=== PATIENT | female | born 1960 | race Hispanic/Latino ===

== ENCOUNTER 2017-12-06 16:07 | Emergency (ER) | payer SELFPAY ==
--- NOTE | 2017-12-06 17:06 | Emergency Department Report ---
ED General Adult HPI - General Chief complaint: Anxiety Stated complaint: AMS Time Seen by Provider: 12/06/17 16:25 Source: patient, EMS Mode of arrival: Stretcher Limitations: No Limitations - History of Present Illness Initial comments: Ms. Webber is a 57 yo female with history of anxiety, PTSD, fibromyalgia, lupus , osteoarthritis, rheumatoid arthritis and dyslipidemia who presents with possible panic attack. She states that she just did not know where she was. 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 She was walking to the hotel when she suddenly couldn't remember where she was staying. She couldn't remember her room number. She has been taking a new medication to which she attributed the same symptoms with a previous episode several weeks ago. She did not take her anxiety medications today. She was in a hurry to get the breakfast. She has been under a lot of stress recently. She is on very limited income $700 a month. When she arrived to [place], she was unable to afford the hotel fees. She did not know where she was going to sleep over the next few days. She also has been a lot of stress with family issues at home. SHe feels well now. She denies any trouble speaking. She denies any paralysis. Denies loss of vision. She "felt out of it". She took her medicine just prior to arrival. She arrives per EMS. She feels much better - Related Data Allergies Allergy/AdvReac Type Severity Reaction Status Date / Time Sulfa (Sulfonamide Allergy Hives Verified 12/06/17 16:29 Antibiotics) tramadol Allergy Unknown Verified 12/06/17 16:29 ED Review of Systems ROS: Stated complaint: AMS Other details as noted in HPI Comment: All other systems reviewed and negative Constitutional: denies: fever, malaise Respiratory: denies: cough Cardiovascular: denies: chest pain Neurological: confusion. denies: headache, weakness, numbness, paresthesias, abnormal gait, vertigo ED Past Medical Hx - Past Medical History Previous Medical History?: Yes Hx Headaches / Migraines: Yes Hx Psychiatric Treatment: Yes (Anxiety, PTSD) Additional medical history: Fibromyalgia, lupus, osteoarthritis, RA = - Surgical History Past Surgical History?: Yes Hx Cholecystectomy: Yes Hx Appendectomy: Yes Additional Surgical History: , R shoulder, hysterectomy - Social History Smoking Status: Never Smoker Substance Use Type: None ED Physical Exam - General Limitations: No Limitations General appearance: alert, in no apparent distress - Head Head exam: Present: atraumatic, normocephalic - Eye Eye exam: Present: normal appearance - ENT ENT exam: Present: mucous membranes moist - Neck Neck exam: Present: normal inspection - Respiratory Respiratory exam: Present: normal lung sounds bilaterally. Absent: respiratory distress, wheezes, rales, rhonchi - Cardiovascular Cardiovascular Exam: Present: regular rate, normal rhythm, normal heart sounds. Absent: bradycardia, tachycardia, systolic murmur, diastolic murmur, rubs, gallop - GI/Abdominal GI/Abdominal exam: Present: soft. Absent: distended, tenderness, guarding, rebound - Extremities Exam Extremities exam: Present: normal inspection - Back Exam Back exam: Present: normal inspection - Neurological Exam Neurological exam: Present: alert, oriented X3, CN II-XII intact, normal gait. Absent: motor sensory deficit - Psychiatric Psychiatric exam: Present: normal affect, normal mood. Absent: depressed, agitated, anxious, flat affect, manic, homicidal ideation, suicidal ideation - Skin Skin exam: Present: warm, dry, intact, normal color. Absent: rash ED Course Vital Signs 12/06/17 12/06/17 16:23 16:30 Temperature 98.6 F Pulse Rate 84 Respiratory 16 Rate Blood Pressure 150/85 O2 Sat by Pulse 95 Oximetry ED Medical Decision Making - Medical Decision Making Ms. Webber presents with confusion and amnesia. She did not have neurological deficits according to her report. I suspect anxiety attack coupled with transient global amnesia. I do not suspect CVA, TIA. She possibly has an adverse effect to new medication. She agreed to have a limited work up in the ED. She did not desire any testing. In my medical opinion, with normal vital signs and normal physical exam, diagnostics were not indicated. She verbalized understanding to call 911 if symptom recurred or if any new symptoms arise specifically pain, visual/speech disturbance, paralysis, paresthesias. Critical care attestation.: If time is entered above; I have spent that time in minutes in the direct care of this critically ill patient, excluding procedure time. ED Disposition Clinical Impression: Transient global amnesia, Anxiety attack Disposition: DC-01 TO HOME OR SELFCARE Is pt being admited?: No Does the pt Need Aspirin: No Condition: Stable Instructions: Anxiety (ED) Additional Instructions: Please call 911 if symptoms return. Please call 911 if you develop new symptoms. Time of Disposition: 17:10
[2017-12-06 17:18] VITALS: BP 108/63
== END 2017-12-06 18:28 | disposition home or self-care (01) ==
LOC: ED 16:07
DX: F41.9 Anxiety disorder, unspecified (principal); G45.4 Transient global amnesia; G43.909 Migraine, unspecified, not intractable, without status migrainosus; F43.10 Post-traumatic stress disorder, unspecified; Z88.2 Allergy status to sulfonamides; Z88.6 Allergy status to analgesic agent; Z90.49 Acquired absence of other specified parts of digestive tract; Z90.89 Acquired absence of other organs; Z90.710 Acquired absence of both cervix and uterus
CPT/HCPCS: 99283